=== PATIENT | female | born 1960 | race Caucasian/White ===

== ENCOUNTER → 2023-10-06 | Outpatient (CLI) | payer OTHER | END | disposition home or self-care (01) | LOC: RAH 12:02 | PROVIDERS: ATTEND Internal Medicine Medical Oncology | DX: C43.4 Malignant melanoma of scalp and neck (principal); I07.1 Rheumatic tricuspid insufficiency; Z79.899 Other long term (current) drug therapy | CPT/HCPCS: 93306; 93356 ==

== ENCOUNTER → 2024-11-09 | Outpatient (CLI) | payer OTHER ==
--- NOTE | 2024-11-09 18:03 | HMCSR ---
APPROVED REPORT EXAM: Two-dimensional and M-mode echocardiogram with Doppler and color Doppler. Study Details: Hx: CA of skin INDICATION ICD: C43.4 2D Dimensions RVDd4.5 cmLVEF(%)43.0 (>50%)LVED Vol(simp.)77.9 mL IVSd1.0 (0.7-1.1cm)FS(%)21 %LVES Vol(simp.)34.0 mL LVDd4.7 (3.8-5.6cm)LA (2D)4.6 (1.6-4.0cm)LVEF(%, simp.)56 % PWd1.0 (0.7-1.1cm)Ao Root(2D)2.9 (2.0-3.7cm)LA ESV INDEX (4CH)28.40 mL/m2 IVSs1.1 cmLVOT diam1.8 (1.8-2.4cm)LA ESV INDEX (2CH)20.10 mL/m2 LVDs3.7 (2.5-4.0cm)LA ESV INDEX (BP)23.80 mL/m2 PWs1.0 cm Deformation Strain Apical 410.0 % Apical 28.0 % Apical 310.0 % Global Strain9.0 % M-Mode Dimensions EPSS0.9 cm LA (MM)4.3 (1.6-4.0cm) Ao Root(MM)2.4 (2.0-3.7cm) Aortic Valve AoV VTI0.2 mAo Mean GR3.0 mmHgLVOT VTI0.24 m TRACY (VMAX)2.6 cm2AVA (VTI) 2.6 cm2 Mitral Valve MV E Ulwt391.2 cm/sDECEL Jtpu819 ms MV A Vmax32.0 cm/sP 1/2 T61 ms E/A ratio3.3MVA (PHT)3.6 cm2 TDI E/E' Knfsmy67.9E/E' Lefulxp94.7 Medial E' Peak V7.20 cm/sLateral E' Peak V7.80 cm/s Pulmonary Valve PV Vmax0.7 m/s PV Peak GR2.1 mmHg Tricuspid Valve TR Vmax2.7 m/s TR Peak GR28.9 mmHg Left Ventricle Left ventricular cavity size is normal. There is normal LV segmental wall motion. There is normal lef t ventricular wall thickness. LVEF is 50-55%. Increased E/E suggestive of increased left ventricular end diastolic pressure. Right Ventricle The right ventricle appears mildly dilated. The right ventricular systolic function is normal. Atria The left atrium size is normal. The right atrium is moderately dilated. Aortic Valve The aortic valve is normal in structure and function. No aortic regurgitation is present. There is no aortic valvular stenosis. Mitral Valve Mitral valve leaflets open well. There is no mitral valve regurgitation noted. There is no mitral stacy ve stenosis. Tricuspid Valve The tricuspid valve leaflets appear normal. There is mild-moderate tricuspid valve regurgitation note d. Pulmonic Valve Pulmonic valve is not well visualized. There is no pulmonic valvular regurgitation. Great Vessels The aortic root is normal in size. The IVC is normal in size and collapses >50% with inspiration. Pericardium No pericardial effusion. Other Information Quality : Adequate Conclusion Left ventricular cavity size is normal. LVEF is 50-55% with normal LV segmental wall motion. Increased E/E suggestive of increased left ventricular end diastolic pressure. The right ventricle appears mildly dilated with a normal systolic function. Both atria are normal in size. There is mild-moderate tricuspid valve regurgitation noted. No pericardial effusion.
== END | disposition home or self-care (01) ==
LOC: RAH 13:57
PROVIDERS: ATTEND Internal Medicine Medical Oncology
DX: I07.1 Rheumatic tricuspid insufficiency (principal); C43.4 Malignant melanoma of scalp and neck
CPT/HCPCS: 93306; 93356